=== PATIENT | male | born 1940 | race Caucasian/White ===

== ENCOUNTER → 2017-08-23 | Outpatient (CLI) | payer MEDICARE, BC ==
[~2017-08-23] MED LIST: ALTACE10 MG PO; ANTIVERT25 MG PO; AUGMENTIN 875875 MG PO; BUTALB-APAP-CA1 EACH; CO Q-10100 MG PO; KLOR-CON 1010 MEQ PO; LIPITOR40 MG PO; MAG-OXIDE400 MG PO; MOBIC7.5 MG PO; MOTION RELIEF25 MG PO; PACERONE 200 M200 MG PO; PAXIL10 MG PO; PRADAXA150 MG PO; PROMETHAZINE12.5 M4 RE; PROZAC20 MG PO; RYTHMOL225 MG PO; SUPER B COMPLE150 MG PO; SYNTHROID25 MC1 PO; TOPAMAX100 MG PO; TOPAMAX50 MG PO; ZOFRAN ODT4 MG PO; ZOFRAN4 MG PO
== END ==
LOC: M.CT 08:38
DX: I25.10 Atherosclerotic heart disease of native coronary artery without angina pectoris (principal); D73.89 Other diseases of spleen; E78.2 Mixed hyperlipidemia; I48.91 Unspecified atrial fibrillation

== ENCOUNTER 2017-09-29 23:07 | Inpatient (IN) | payer OTHER, MEDICARE, BC ==
[~2017-09-29] VITALS: Ht 188 cm; Wt 113.4 kg
[2017-09-29 23:13] VITALS: BP 163/87
[2017-09-29 23:29] LABS: ABSOLUTE BASOPHILS 0.1 thou/uL (0.0-0.2); ABSOLUTE EOSINOPHILS 0.4 thou/uL (0.0-0.7); ABSOLUTE LYMPHOCYTES 2.6 thou/uL (0.8-5.3); ABSOLUTE MONOCYTES 0.9 thou/uL (0.0-1.2); ABSOLUTE NEUTROPHILS 4.1 thou/uL (1.6-8.1); BASOPHILS 0.9 %; EOSINOPHILS 4.8 %; HEMATOCRIT 43.9 % (42.0-52.0); HEMOGLOBIN 14.8 gm/dL (14.0-18.0); LYMPHOCYTES 32.2 %; MCH 30.2 pg (26.0-34.0); MCHC 33.7 g/dL (28.0-37.0); MCV 89.8 fL (80.0-100.0); MPV 7.8 fl. (7.2-11.1); NUCLEATED RBCS 0 /100WBC; PLATELET COUNT* 212 thou/uL (150-400); POLYS 51.1 %; RBC 4.89 mil/uL (4.50-6.00); WBC 8.1 thou/uL (4.0-11.0)
[2017-09-29 23:40] LABS: INR 1.2; PROTIME 11.7 Seconds (9.20-11.50)
[2017-09-29 23:54] LABS: ANION GAP 9 mmol/L (7-16); BUN 16 mg/dL (7-18); CALCIUM 9.3 mg/dL (8.5-10.1); CHLORIDE 107 mmol/L (98-107); CO2 24 mmol/L (21-32); CREATININE 1.3 mg/dL (0.6-1.3); GLUCOSE 130 mg/dL (70-99); SODIUM 140 mmol/L (136-145)
[2017-09-29 23:55] LABS: POTASSIUM 2.9 mmol/L (3.5-5.1)
[2017-09-30 00:08] LABS: ALBUMIN 3.7 g/dL (3.4-5.0); ALKALINE PHOSPHATASE 80 U/L (46-116); LIPASE 129 U/L (73-393); MAGNESIUM 2.1 mg/dL (1.8-2.4); NT-PRO BRAIN NAT PEPTIDE 146 pg/mL (<300); SGOT 31 U/L (15-37); SGPT 42 U/L (30-65); TOTAL BILIRUBIN 0.4 mg/dL (<0.1-1.0); TOTAL PROTEIN 6.6 g/dL (6.4-8.2); TROPONIN-I LEVEL <0.06 ng/mL (<0.06)
[2017-09-30 00:49] LABS: CK-MB MASS 3.2 ng/mL (<0.5-3.6)
[2017-09-30 01:05] VITALS: BP 127/72
[2017-09-30 08:30] VITALS: BP 148/72
[2017-09-30 11:53] VITALS: BP 130/73
[2017-09-30] MEDS ORDERED: TOPAMAX50 MG PO (15:09)
[2017-09-30 15:11] VITALS: BP 130/73
--- NOTE | 2017-10-01 11:16 | EKG ---
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 : 1940 Requested By: Dimitris Camacho Order Number: [id number] MD: Peyman Adams Measurements Intervals [place] Rate: 70 P: -57 NE: 149 QRS: -23 QRSD: 85 T: QT: 462 QTc: 499 Interpretive Statements Sinus rhythm Abnormal R-wave progression, early transition consider Inferior infarct, old Lateral leads are also involved Baseline wander in lead(s) II,III,aVF Compared to ECG 12/26/2015 19:10:28 Left ventricular hypertrophy no longer present Electronically Signed On 10-01-2017 11:16:15 CDT by Peyman Adams [email or web address] <ELECTRONICALLY SIGNED> By: Peyman Adams MD, FACC 10/01/17 1116 2310 2310 Peyman Adams MD, FAC /EPI
--- NOTE | 2017-10-01 11:20 | EKG ---
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
--- NOTE | 2017-10-01 17:06 | EKG ---
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: : 1940 Requested By: Dimitris Camacho Order Number: [id number] Reading MD: Mateus Taylor Measurements Intervals [place] Rate: 47 P: -3 NE: 251 QRS: -23 QRSD: 88 T: QT: 512 QTc: 453 Interpretive Statements Sinus bradycardia Prolonged NE interval Abnormal R-wave progression, early transition LVH with secondary repolarization abnormality Inferior infarct, old Compared to ECG 12/26/2015 19:10:28 First degree AV block now present Myocardial infarct finding now present Sinus rhythm no longer present Prolonged QT interval no longer present Electronically Signed On 10-01-2017 17:06:01 CDT by Mateus Taylor [email or web address] <ELECTRONICALLY SIGNED> By: Mateus Taylor MD, FAC 10/01/17 1706 1045 1045 Mateus Taylor MD, [facility] /EPI
== END 2017-09-30 15:30 | disposition home or self-care (01) | DRG 303 ==
LOC: M.ERS 23:07 → M.2W 09-30 00:23 → M.TBA-ER 09-30 00:23 → M.2W 09-30 00:56
PROVIDERS: Family Medicine; ADMIT Internal Medicine
DX: I25.119 Atherosclerotic heart disease of native coronary artery with unspecified angina pectoris (principal); E87.6 Hypokalemia; I10 Essential (primary) hypertension; E78.5 Hyperlipidemia, unspecified; G43.909 Migraine, unspecified, not intractable, without status migrainosus; Z86.718 Personal history of other venous thrombosis and embolism; Z88.2 Allergy status to sulfonamides; Z95.5 Presence of coronary angioplasty implant and graft; Z82.49 Family history of ischemic heart disease and other diseases of the circulatory system

== ENCOUNTER → 2017-10-27 | Outpatient (CLI) | payer OTHER, MEDICARE, BC ==
[2017-10-27 08:32] LABS: CALCIUM 9.5 mg/dL (8.5-10.1); CREATININE 1.1 mg/dL (0.6-1.3); POTASSIUM 3.7 mmol/L (3.5-5.1)
== END ==
LOC: M.LAB 08:04
PROVIDERS: Internal Medicine Cardiovascular Disease
DX: I48.0 Paroxysmal atrial fibrillation (principal)

== ENCOUNTER 2020-04-13 15:32 | Emergency (ER) | payer OTHER, MEDICARE, BC ==
[~2020-04-13] VITALS: Ht 188 cm; Wt 115.7 kg
[2020-04-13 15:50] LABS: HEMATOCRIT 46.9 % (42.0-52.0); MCH 31.1 pg (26.0-34.0); MCHC 34.2 g/dL (28.0-37.0); MCV 91.1 fL (80.0-100.0); MPV 7.5 fl. (7.2-11.1); NUCLEATED RBCS 0 /100WBC; PLATELET COUNT* 235 thou/uL (150-400); RBC 5.15 mil/uL (4.50-6.00); RDW-CV 13.7 % (10.5-14.5); WBC 8.6 thou/uL (4.0-11.0)
[2020-04-13] MEDS ORDERED: PROBIOTIC1 EAC7 PO (15:52)
[2020-04-13 16:03] LABS: APTT 34.2 Seconds (25.0-31.3); INR 1.1; PROTIME 11.9 Seconds (9.20-11.50)
[2020-04-13 16:15] LABS: CALCIUM 8.9 mg/dL (8.5-10.1); CREATININE 1.3 mg/dL (0.6-1.3); POTASSIUM 3.6 mmol/L (3.5-5.1)
[2020-04-13 16:18] LABS: ABSOLUTE BASOPHILS 0.1 thou/uL (0.0-0.2); ABSOLUTE EOSINOPHILS 0.4 thou/uL (0.0-0.7); ABSOLUTE MONOCYTES 0.6 thou/uL (0.0-1.2); ABSOLUTE NEUTROPHILS 4.5 thou/uL (1.6-8.1); PLATELET ESTIMATE ADEQUATE
[2020-04-13 16:26] LABS: ALBUMIN 3.9 g/dL (3.4-5.0); MAGNESIUM 2.6 mg/dL (1.8-2.4); TOTAL BILIRUBIN 0.7 mg/dL (<0.1-1.0); TOTAL PROTEIN 7.2 g/dL (6.4-8.2)
[2020-04-13 18:19] VITALS: BP 139/76
--- NOTE | 2020-04-14 12:48 | EKG ---
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: : 1940 Requested By: Arnold Bird Order Number: [id number] MD: Zachery Sullivan Measurements Intervals [place] Rate: 81 P: -13 [place]: 124 QRS: -15 QRSD: 95 T: 101 QT: 450 QTc: 523 Interpretive Statements Sinus rhythm Atrial premature complex Abnormal R-wave progression, early transition Left ventricular hypertrophy Prolonged QT interval Compared to ECG 09/30/2017 10:45:12 Atrial premature complex(es) now present Prolonged QT interval now present Sinus bradycardia no longer present First degree AV block no longer present Early repolarization no longer present Myocardial infarct finding no longer present Electronically Signed On 04-14-2020 12:48:11 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
== END 2020-04-13 18:21 | disposition left against medical advice (07) ==
LOC: M.ERS 15:32
PROVIDERS: Emergency Medicine Emergency Medical Services
DX: R07.9 Chest pain, unspecified (principal); I25.10 Atherosclerotic heart disease of native coronary artery without angina pectoris; I10 Essential (primary) hypertension; E78.5 Hyperlipidemia, unspecified; Z79.899 Other long term (current) drug therapy; Z88.2 Allergy status to sulfonamides

== ENCOUNTER → 2020-08-23 | Outpatient (CLI) | payer OTHER, MEDICARE, BC ==
[~2020-08-23] MED LIST changes: +PROBIOTIC1 EAC7 PO
[2020-08-23 08:46] LABS: ALBUMIN 4.2 g/dL (3.4-5.0); ALKALINE PHOSPHATASE 75 U/L (46-116); ANION GAP 7 mmol/L (7-16); BUN 15 mg/dL (7-18); CALCIUM 9.4 mg/dL (8.5-10.1); CHLORIDE 106 mmol/L (98-107); CHOLESTEROL 164 mg/dL (<200); CO2 31 mmol/L (21-32); CREATININE 1.2 mg/dL (0.6-1.3); DIRECT BILIRUBIN 0.2 mg/dL (<0.1-0.3); GLUCOSE 100 mg/dL (70-99); HDL CHOLESTEROL 62 mg/dL (>40); LDL CHOLESTEROL 87 mg/dL (<100); POTASSIUM 3.4 mmol/L (3.5-5.1); SGOT 18 U/L (15-37); SGPT 35 U/L (30-65); SODIUM 144 mmol/L (136-145); TC:HDL 2.6 Ratio (Not establshd); TOTAL BILIRUBIN 0.8 mg/dL (<0.1-1.0); TOTAL PROTEIN 7.5 g/dL (6.4-8.2); TRIGLYCERIDE 75 mg/dL (<150); VLDL 15 mg/dL (<40)
[2020-08-23 09:06] LABS: SERUM ASSESSMENT Clear
== END ==
LOC: M.LAB 07:52
DX: I48.91 Unspecified atrial fibrillation (principal); I25.10 Atherosclerotic heart disease of native coronary artery without angina pectoris